=== PATIENT | male | born 1970 | race African-American/Black ===

== ENCOUNTER 2020-10-05 03:51 | Emergency (ER) | payer OTHER, SELFPAY ==
[2020-10-05 03:55] VITALS: BP 142/83; PULSE 62; RESP 16; TEMP 36.6; O2SAT 100
--- NOTE | 2020-10-05 04:29 | ED.GENADUL_ITS ---
Discharge Plan Disposition Patient Disposition: HOME Condition: Good Discharge Details Clinical Impression: Dental caries Primary Care Provider: None,None ED Provider: Clay Reynoso Home Meds and New Rx's Prescriptions: New amoxicillin 500 mg capsule 500 mg PO QID 7 Days Qty: 28 RF: 0 Discharge Instructions Instructions: Dental Caries (ED) Additional Instructions: The block we administered should help improve your pain. Please take 800 mg of ibuprofen every 6 hours and 1000 mg of Tylenol every 6 hours to help with the inflammation and pain. These are the maximum doses. Please take the antibiotic as directed to help with the infection in your tooth. If you notice any worsening of your symptoms, or any new symptoms such as difficulty swallowing, difficulty breathing, vomiting, diarrhea, fever, chills, shortness of breath, chest pain, numbness, weakness, or fainting , please return immediately to the emergency department for reevaluation. Please follow up with your primary care provider as soon as possible for reassessment and reevaluation. As always, it was a pleasure participating in your medical care today. Discharge Data Discharge Date/Time-TO BE ENTERED AT DEPARTURE: 10/05/20 04:35 Medical Decision Making 50-year-old -Citizen Of [place] male presents for dental pain. Patient states that he has had pain in his upper and lower teeth for the past few weeks, notably worsening tonight. He has taken Tylenol and Motrin without significant improvement. He denies any fever or chills. He is visiting from [place]. He has not seen a dentist. He denies any difficulty swallowing or drinking. No other complaints at this time. Exam demonstrates mild dental caries, no periapical abscess. Superior alveolar block was provided as well as an inferior alveolar block. Patient had complete resolution of his pain. Patient will be started on amoxicillin, he'll be given the first dose here. Discussed red flags which to return. I have extensively reviewed the treatment plan and discharge instructions with the patient. I have addressed all patient concerns at this time. The patient was made aware of what symptoms to monitor for that would warrant a return to the emergency department. Discussed the plan with the patient, they demonstrate verbal understanding and agreement with our assessment and plan at this time. The documentation in this chart was dictated using [employer] dictation software. Please excuse any dictation errors. HPI General Date/Time Provider Initiated Documentation: 10/05/20 03:54 . HPI Narrative: 50-year-old -Citizen Of [place] male presents for dental pain. Patient states that he has had pain in his upper and lower teeth for the past few weeks, notably worsening tonight. He has taken Tylenol and Motrin without significant imp rovement. He denies any fever or chills. He is visiting from [place]. He has not seen a dentist. He denies any difficulty swallowing or drinking. No other complaints at this time. Related Data Home Medications Medication Instructions Recorded Confirmed amoxicillin 500 mg PO QID 7 Days #28 cap 10/05/20 Previous Rx's Medication Instructions Recorded amoxicillin 500 mg PO QID 7 Days #28 cap 10/05/20 Allergies Allergy/AdvReac Type Severity Reaction Status Date / Time No Known Allergies Allergy Unverified 10/05/20 04:02 General Stated Complaint: DentalOral RONNIE: 4 Review of Systems All systems reviewed & are unremarkable except as noted in HPI and below PFSH Social History Smoking/Tobacco Use Status: Never Smoking risk assessment performed?: Yes Alcohol Intake: current Alcohol Intake frequency: a few times a month Drug use: Daily Substance use type: marijuana Do you feel safe at home: Yes Exam Narrative Exam Narrative: 1.Const: Well-nourished, Well-developed, appearing stated age 2.Eyes: PERRL, no conjunctival injection, and symmetrical lids. 3.ENT: Atraumatic external nose and ears. Moist MM. Neck: Symmetric, trachea midline, No thyromegaly. Notable dental caries throughout, no periapical abscesses. No evidence of Ludewig's angina. 4.CVS: +S1/S2, No murmurs or gallops. Peripheral pulses 2+ and equal in all extremities. Brisk capillary refill in all extremities. 5.RESP: Unlabored respiratory effort. Clear to auscultation bilaterally. No wheezes rales or rhonchi 6.GI: Soft, Nontender/Nondistended, No hepatosplenomegaly. No guarding or rebound. 7.MSK: Normocephalic/Atraumatic, Extremities w/o deformity or ttp No cyanosis or clubbing, Normal movement of all extremities 8.Skin: Warm, Dry. No rashes or lesions. 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 Sensation grossly intact, no focal neurologic deficits. 10.Psych: (AAO) x3. Appropriate mood and affect Course Vital Signs Vital signs: Vital Signs Temperature 36.6 C 10/05/20 03:55 Pulse 62 10/05/20 03:55 Respiratory Rate 16 10/05/20 03:55 Blood Pressure 142/83 H 10/05/20 03:55 Pulse Oximetry 100 10/05/20 03:55 Temperature 36.6 C 10/05/20 03:55 Temperature Source Skin 10/05/20 03:55 Pulse 62 10/05/20 03:55 Respiratory Rate 16 10/05/20 03:55 Respiratory Effort Non-Labored 10/05/20 04:02 Blood Pressure 142/83 H 10/05/20 03:55 Blood Pressure Position Sitting 10/05/20 03:55 Pulse Oximetry 100 10/05/20 03:55 Oxygen Delivery Method Room Air 10/05/20 03:55 Oxygen Flow Rate 0 10/05/20 03:55 Pain Level 9 10/05/20 04:03 Procedures Nerve Block Nerve Block 1: Time out performed: Yes Local Anesthetic: Bupivicaine 0.5% Amount of anesthesia used (mL): 5 Side: left Intraoral Nerve Block: superior alveolar Procedure Successful: Yes Patient Tolerated Procedure: well Complications: none Nerve Block 2: Time out performed: Yes Local Anesthetic: Bupivicaine 0.5% Amount of anesthesia used (mL): 5 Side: left Intraoral Nerve Block: inferior alveolar Patient Tolerated Procedure: well Complications: none
[2020-10-05] MEDS: Amoxicillin 500 MG CAP PO (04:33)
[2020-10-05] MEDS: Bupivacaine 0.5% Pres-Free 30 ML VIAL (04:34)
== END 2020-10-05 04:35 | disposition home or self-care (01) ==
PROVIDERS: Emergency Provider Student in an Organized Health Care Education/Training Program
DX: R42 Dizziness and giddiness (principal); R00.1 Bradycardia, unspecified
CPT/HCPCS: 99284; 99283